=== PATIENT | male | born 2000 | race Caucasian/White ===

== ENCOUNTER 2020-08-15 02:05 | Emergency (ER) | payer OTHER, SELFPAY ==
[2020-08-15 02:18] VITALS: BP 156/76; PULSE 74; RESP 20; TEMP 36.8; O2SAT 100; BMI 24.8
--- NOTE | 2020-08-15 02:19 | DI.US.S_ITS ---
PROCEDURE: US SCROTUM INDICATIONS: RIGHT SCROTAL PAIN TECHNIQUE: Real-time scanning was performed of the scrotum and testicles, with image documentation. Color and pulse Doppler interrogation was performed of both testicles. COMPARISON: None. FINDINGS: Right: Testicle is normal in size at 3.9 x 2 x 2.6 cm, and homogenous in echotexture. Epididymis is normal in overall size and morphology. No hydrocele or varicoceles. Overlying scrotal skin is normal in thickness. Left: Testicle is normal in size at 4 x 2.1 x 2 cm, and homogeneous in echotexture. Epididymis is normal in overall size and morphology. There is a small left-sided hydrocele. No varicoceles. Overlying scrotal skin is normal in thickness. Doppler: Color and pulse Doppler demonstrate normal and symmetric arterial flow in both testicles. No findings of hernia can be seen. IMPRESSION: Normal testicles, without intratesticular abnormality or abnormal vascularity seen. Small left-sided hydrocele incidentally noted. Note: No significant discrepancy from the preliminary report. Dictated by: Ga Jane M.D. on 08/15/2020 at 8:17 Approved by: Ga Jane M.D. on 08/15/2020 at 8:19
--- NOTE | 2020-08-15 02:21 | ED_ITS ---
HPI - Male Genitourinary General Chief complaint: Urogenital-Male Stated complaint: testicular issue Time Seen by Provider: 08/15/20 02:12 Source: patient and other (friend at bedside for HPI) Mode of arrival: Ambulatory Limitations: no limitations History of Present Illness HPI Narrative: This is a 20-year-old male comes emergency department with complaint of right testicular pain. Patient states he was lifting kettle bells on Sunday. He states that they may have been heavier than he should have. He developed in his right testicle on Sunday approximately 8:00 a.m. which has continued into this morning, approximately 18 hours. Patient states it has been a gradual onset and worsening. Patient states that the pain does radiate to his abdomen. He does not have pain in his left testicle. He has pain with urination in the testicle. He notes some mild dysuria. Patient has not appreciated any discharge. Patient feels like there is some fullness on the right and into the ?column of the testicle?patient has not had any fevers or chills. He has felt nauseated particularly when the pain is at its most intense. He states it sort of waxes and wanes in intensity but has been consistent. Patient has been sexual active but not for the past four months. He denies any other medical issues. Denies prior surgeries. No allergies to medications. Denies tobacco, alcohol and occasional recreational drug use. Related Data Previous Rx's Medication Instructions Recorded doxycycline hyclate 100 mg PO BID #14 tab 08/15/20 Allergies Allergy/AdvReac Type Severity Reaction Status Date / Time No Known Drug Allergies Allergy Verified 08/15/20 02:35 Review of Systems Review of Systems ROS Unobtainable: All systems reviewed & are unremarkable except as noted in HPI and below Patient History Social History Smoking Status: Never smoker Exam Narrative Exam Narrative: GENERAL: Alert and oriented x three, thin, well-appearing male in [id number] distress. HEENT: Head normocephalic, atraumatic, EOMI, pupils reactive, face symmetric, moist mucous membranes NECK: Supple, full range of motion CARDIOVASCULAR: Regular rate and rhythm without murmurs, rubs or gallops. RESPIRATORY: Breath sounds equal bilaterally, no wheezes rales or rhonchi. ABDOMEN: Soft, nontender. Normoactive bowel sounds all 4 quadrants. No guarding or rebound, rigidity, no mass : No CVA tenderness. Male: normal external examination, no penile discharge or lesions, right testicle is tender, left testicle is nontender, no obvious swelling, erythema or skin changes appreciated. Cremasteric reflex intact, no inguinal hernias are clearly noted but the right inguinal canal does feel silva than the left although I am unable to palpate a clear hernia. EXTREMITIES: Normal range of motion, no clubbing or edema. Neurovascularly intact NEUROLOGICAL: Cranial nerves II through XII grossly intact. Moving all extremities SKIN: Warm, dry, no petechiae, no rashes or lesions. Initial Vital Signs Initial Vital Signs: Vital Signs Temperature 98.2 F 08/15/20 02:18 Pulse Rate 74 08/15/20 02:18 Respiratory Rate 20 08/15/20 02:18 Blood Pressure 156/76 H 08/15/20 02:18 Pulse Oximetry 100 08/15/20 02:18 Course Orders Ordered: ED Orders 08/15/20 02:19 US scrotum Stat 08/15/20 02:50 Chlamydia Gonorrhea PCR -URINE Stat Urinalysis and Microscopic Stat Discontinued Medications Ceftriaxone Sodium (Ceftriaxone 1,000 Mg Vial) 500 mg IM NOW ONE Stop: 08/15/20 03:52 Last Admin: 08/15/20 04:02 Dose: 500 mg Documented by: LE Doxycycline Hyclate (Doxycycline Hyclate 100 Mg Tablet) 100 mg PO NOW ONE Stop: 08/15/20 03:52 Last Admin: 08/15/20 04:01 Dose: 100 mg Documented by: LE Ketorolac Tromethamine (Ketorolac 60 Mg/2 Ml Vial) 30 mg IM NOW ONE Stop: 08/15/20 02:20 Last Admin: 08/15/20 02:38 Dose: 30 mg Documented by: ZACH Lidocaine HCl (Lidocaine 1% 20 Ml) 2.1 ml INJ NOW ONE Stop: 08/15/20 03:52 Last Admin: 08/15/20 04:04 Dose: 2.1 ml Documented by: LE Tramadol HCl (Tramadol 50 Mg Prepack) 1 bottle MISC SEEINSTR ONE Stop: 08/15/20 03:52 Last Admin: 08/15/20 04:02 Dose: 1 bottle Documented by: LE Reevaluation(s) Reevaluation #1: Patient feeling somewhat better after Toradol. States US was okay. Reviewed patient imaging and labs today. Time: 03:34 Consultations Consultation #1: Discussed with Dr. Mcgee. Patient does have testicular pain. It is not excluded on examination. Patient does not have any of these ultrasound findings, no signs of decreased flow but also no findings of epididymitis or orchitis noted. We did discuss he has had about 18 hours of symptoms it is not a classic type torsion history. His urine does not show acute changes. We did discuss we could possibly treat with antibiotics to see if he has some improvement. Patient was given strict return precautions. Plan for follow up and return for recheck if continues to worsen. Time: 03:38 Vital Signs Vital signs: Vital Signs - 8 hr 08/15/20 02:18 08/15/20 04:15 Temperature 98.2 F Pulse Rate 74 61 Respiratory Rate 20 18 Blood Pressure 156/76 H 123/60 Pulse Oximetry 100 98 MDM - Male Genitourinary Lab Data Labs: Lab Results 08/15/20 Range/Units 02:50 Urine Color Yellow Urine Appearance Clear Urine pH 6.0 (4.5-8.0) Ur Specific [place] >=1.030 H (1.000-1.035) Urine Protein 1+ H (Negative) Urine Glucose (UA) Trace H (Negative) g/dL Urine Ketones Negative (NEGATIVE) Urine Occult Blood Negative (Negative) Urine Nitrate Negative (Negative) Urine Bilirubin Negative (NEGATIVE) Urine Urobilinogen 0.2 (0.2) E.U./dL Ur Leukocyte Esterase Negative (NEGATIVE) Urine RBC None seen (0-5/HPF) Urine WBC 1-5/hpf (0-5/HPF) Urine Bacteria None seen (None) Urine Mucus 1+ H (Negative) Ur Culture Indicated? Cult not indicated Imaging Data Scrotum ultrasound: My Impression: nap. Radiologist's Impression: Unremarkable scrotal ultrasound with right testicle measuring 3.9 x 2 x 2.6 cm. No mass, no abnormal echogenicity. Color Doppler imaging rapid straight unremarkable intra testicular blood flow with no evidence of torsion. No epididymal enlargement is appreciated. No cyst, there is no evidence of epididymitis. No hydrocele or varicocele is evident. Left testicle measures 4 x 2.1 x 2 cm. No testicular masses appreciated. No abnormal echogenicity is appreciated. Color Doppler imaging demonstrates unremarkable intra testicular blood flow. There is no evidence of torsion. No epididymal enlargement is appreciated. No cyst is appreciated there is no evidence of epididymitis. No hydrocele or varicocele is evident. There is no scrotal wall thickening apparent. MDM Narrative Medical decision making narrative: This is a 20 year old male with gradual onset of right testicular pain. Patient does note that he was lifting kettle bells the day prior but not the day of. He states it was very gradual slow onset and was not sudden and has been slowly increasing in intensity. He became so uncomfortable that he finally called the nurse's hotline where he was referred to the emergency department. Patient does have good flow on ultrasound. He does not have any other obvious changes for epididymitis or orchitis. He is tender in the testicle but also in the right inguinal canal but no obvious hernia is noted or seen on ultrasound. Patient case was discussed with Urology. They felt that torsion was less likely with his symptomatology, history of his present illness. His urine does not show any obvious infection but we did discuss possibly treating with short-term reassessment. I did discuss with patient symptoms of torsion, but there is always concern for risk of infertility. We discussed attempting a manual detorsion although we also discussed that my suspicion is his last based on his current symptomatology and physical exam. Patient defers and is comfortable treating with antibiotics. Very short course of pain medication and referral to Urology if his symptoms not improving in the short term. We did discuss return precautions and patient expressed his understanding. Discharge Plan Departure Patient Disposition: Home Clinical Impression: Pain in right testicle Instructions: DI for Testicular Pain Activity Restrictions/Additional Instructions: Follow up with urology. Call for an appointment. Take antibiotics until completely gone. Take medication as prescribed. This medication can make you sleepy do not drive, perform hazardous activities or make any major decisions while taking this medication. Please return for fevers greater than 100.4F, no new or worsening pain, swelling, redness, change in size or shape, difficulty with urination, persistent vomiting, new abdominal, back or flank pain or other new or concerning symptoms. Prescriptions: New doxycycline hyclate 100 mg tablet 100 mg PO BID Qty: 14 RF: 0 Referrals: Pancho Hale MD [Physician] - Stand Alone Forms: Work Release Note
[2020-08-15] MEDS: KETOROLAC 60 MG/2 ML VIAL 30 MG IM (02:38)
[2020-08-15 03:01] LABS: Bacteria Urine None Seen; RBC Urine None Seen (0-5/HPF)
[2020-08-15 03:02] LABS: Appearance Urine UA CLEAR; Bilirubin Urine UA NEGATIVE (NEGATIVE); Color Urine UA YELLOW; Glucose Urine UA TRACE g/dL (Negative); Ketones Urine UA NEGATIVE (NEGATIVE); Leukocyte Esterase Urine UA NEGATIVE (NEGATIVE); Nitrite Urine UA NEGATIVE (Negative); Occult Blood Urine UA NEGATIVE (Negative); Protein Urine UA 1+ (Negative); Specific Gravity Urine UA >=1.030 (1.000-1.035); Urobilinogen Urine UA 0.2 E.U./dL (0.2)
[2020-08-15 03:14] LABS: Culture Indicated Urine Cult Not Indicated; Mucus Urine 1+ (Negative); WBC Urine 1-5/HPF (0-5/HPF)
[2020-08-15] MEDS: DOXYCYCLINE HYCLATE 100 MG TABLET PO (04:01)
[2020-08-15] MEDS: cefTRIAXone 1,000 MG VIAL 500 MG IM (04:02)
[2020-08-15] MEDS: TRAMADOL 50 MG PREPACK 1 BOTTLE MISC (04:02)
[2020-08-15] MEDS: LIDOCAINE 1% 20 ML 2.1 ML INJ (04:04)
[2020-08-15 04:15] VITALS: BP 123/60; PULSE 61; RESP 18; O2SAT 98
[2020-08-15 05:13] LABS: Urine N gonorrhoeae NOT DETECTED
[2020-08-15 05:19] LABS: Urine Chlamydia NOT DETECTED
== END 2020-08-15 04:15 | disposition home or self-care (01) ==
PROVIDERS: Emergency Provider Emergency Medicine
DX: N50.811 Right testicular pain (principal); R30.0 Dysuria
CPT/HCPCS: 76870; 81001; 87491; 87591; 96372; 99283; 99284; J0696; J1885

== ENCOUNTER 2023-04-24 20:32 | Emergency (ER) | payer OTHER, SELFPAY ==
[2023-04-24 20:35] VITALS: BP 135/85; PULSE 66; RESP 18; TEMP 36.4; O2SAT 100; BMI 26.2
--- NOTE | 2023-04-24 22:15 | PC.NURSE ---
Addendum entered by Jose Connor R.N. 04/24/23 22:42: Pt. left [facility] not AMA. No provider exam/ evaluation performed. Original Note: Pt. spouse out to ns. station reporting pt. now feeling fine & wanted to leave. Advised the MSE, possible labwork, EKG & CXR recommended. Acknowledged & choosing to depart. Agreeable to signing AMA form. Pt. & spouse not angry or upset/ acknowledging busy dept. ERMD made aware.
== END 2023-04-24 22:25 | disposition left against medical advice (07) ==
PROVIDERS: Emergency Provider Family Medicine Addiction Medicine
CPT/HCPCS: 99281